=== PATIENT | male | born 1970 | race Caucasian/White ===

== ENCOUNTER → 2017-05-12 | Emergency (ER) | payer OTHER ==
[~2017-05-12] VITALS: Ht 165.1 cm; Wt 61.2 kg
== END | disposition home or self-care (01) ==
LOC: ER 18:09
DX: S01.411A Laceration without foreign body of right cheek and temporomandibular area, initial encounter (principal); W45.8XXA Other foreign body or object entering through skin, initial encounter; Y93.89 Activity, other specified; Y92.89 Other specified places as the place of occurrence of the external cause; Y99.8 Other external cause status